=== PATIENT | male | born 1960 | race Caucasian/White ===

== ENCOUNTER → 2023-03-19 | Outpatient (CLI) | payer OTHER ==
[~2023-03-19] VITALS: Ht 182.9 cm; Wt 125.4 kg
[~2023-03-19] MED LIST: BENICAR40 MG PO; ELIQUIS 5MG PO; HCTZ 25MG TAB25 MG PO; NAPROSYN500 MG PO; PRILOTC PO; TOPROL XL 50MG50 MG PO; ZYLOPRIM 300MG300 MG PO
[2023-03-19 11:22] VITALS: BP 169/98; PULSE 57; TEMP 97.7
[2023-03-19 12:40] VITALS: BP 112/94; PULSE 50
[2023-03-19 12:45] VITALS: BP 112/94; PULSE 69
[2023-03-19 13:00] VITALS: BP 118/69; PULSE 60
[2023-03-19 13:15] VITALS: BP 131/75; PULSE 66
== END ==
LOC: COL.RAD 10:38
DX: M75.101 Unspecified rotator cuff tear or rupture of right shoulder, not specified as traumatic (principal); S46.211A Strain of muscle, fascia and tendon of other parts of biceps, right arm, initial encounter
CPT/HCPCS: J2250; J2704